=== PATIENT | female | born 1985 | race Caucasian/White ===

== ENCOUNTER 2017-11-20 11:07 | Emergency (ER) | payer MEDICAID, OTHER ==
[~2017-11-20] VITALS: Ht 154.9 cm; Wt 56.0 kg
[~2017-11-20 11:07] MED LIST: FERR325T PO; MAKE250I IM; PRENCAP6 PO
[2017-11-20 11:31] VITALS: BP 139/77; PULSE 99; RESP 22; TEMP 98.8; O2SAT 100
[2017-11-20 13:07] LABS: AUTOMATED NEUTROPHIL # 5.5 TH/MM3 (1.8-7.7); BASOPHIL % 0.3 % (0.0-2.0); EOSINOPHIL # 0.1 TH/MM3 (0-0.4); EOSINOPHIL % 0.5 % (0.0-4.0); HEMATOCRIT 37.5 % (35.0-46.0); HEMOGLOBIN 12.6 GM/DL (11.6-15.3); LYMPH % 29.5 % (9.0-44.0); LYMPHOCYTE # 2.7 TH/MM3 (1.0-4.8); MEAN CELL VOLUME 77.1 FL (80.0-100.0); MEAN CORPUSCULAR HGB CONC 33.7 % (32.0-36.0); MEAN PLATELET VOLUME 8.4 FL (7.0-11.0); MONO % 10.2 % (0.0-8.0); MONOCYTE # 0.9 TH/MM3 (0-0.9); NEUT % 59.5 % (16.0-70.0); PLATELET COUNT 296 TH/MM3 (150-450); RED BLOOD COUNT 4.86 MIL/MM3 (4.00-5.30); RED CELL DISTRIBUTION WIDTH 14.6 % (11.6-17.2); WHITE BLOOD COUNT 9.2 TH/MM3 (4.0-11.0)
--- NOTE | 2017-11-20 13:13 | PD ---
HPI Chief Complaint: Cold / Flu Symptoms Time Seen by Provider: 12:13 Travel History International Travel<30 days: No Contact w/Intl Traveler<30days: Yes Name of Country Traveled to: [place] OCTOBER 2017 Traveled to known affect area: No History of Present Illness HPI 32-year-old presents to the emergency department with multiple complaints. Her first complaint is cough and nasal congestion 2 days. Reports greenish mucus. Reports shortness of breath only with coughing. Denies chest tightness, wheezing. Denies fevers. Denies ear pain, sore throat. Has been taking Robitussin for symptom management. Symptoms are mild in severity. No known aggravating or relieving factors. Her second complaint is abdominal pain and cramping 3 days with abnormal vaginal discharge and odor. Denies vaginal leaking, bleeding, lesions. Does not have concern of STI/STD. Denies dysuria. Last menstrual period was October 04. Symptoms are mild to moderate in severity. Pain is constant. Worse with coughing. No known relieving factors. No primary care provider. No crabber. No known allergies. Takes vitamins. Denies significant past medical history. Has no other medical complaints. No other modifying factors or associated signs and symptoms. PFSH Past Medical History Medical History: Denies Significant Hx Diminished Hearing: No ?: LMP: 10/04/17 : 5 Para: 2 Miscarriage: 2 : 1 Past Surgical History Surgical History: No Previous Surgery Section: Yes Social History Alcohol Use: No Tobacco Use: No Substance Use: No Allergies-Medications (Allergen,Severity, Reaction): Coded Allergies: No Known Allergies (Verified Adverse Reaction, Unknown, 11/20/17) Reported Meds & Prescriptions Reported Meds & Active Scripts Active Spry (Hydroxyprogesterone Caproate) 250 Mg/Ml Inj 250 Mg IM WEEKLY Reported Iron (Ferrous Sulfate) 325 Mg Tab 325 Mg PO DAILY 1 ( Multivitamins) Cap 1 Cap PO DAILY Review of Systems Except as stated in HPI: all other systems reviewed are Neg Physical Exam Narrative GENERAL: Well-nourished, well-developed black female patient, in no acute distress; afebrile, nontoxic-appearing SKIN: Warm and dry. No rash. HEAD: Atraumatic. Normocephalic. EYES: Pupils equal and round. No scleral icterus. No injection or drainage. ENT: Mucosa pink and moist. No erythema or exudates. No uvular edema. No uvular , palatal, or tonsillar deviation. Airway patent. EARS: Bilateral pinnae and external canals appear within normal limits. Bilateral tympanic membranes without erythema, dullness or perforation. NECK: Trachea midline. No lymphadenopathy. CARDIOVASCULAR: Regular rate and rhythm. No murmur appreciated. RESPIRATORY: No accessory muscle use. Clear to auscultation. Breath sounds equal bilaterally. No retractions or tachypnea. GASTROINTESTINAL: Abdomen soft, tenderness to lower abdomen, nondistended. Hepatic and splenic margins not palpable. Bowel sounds are active 4 quadrants. PELVIC: Exam done in the presence of a nurse. Speculum exam reveals nonedematous and nonerythematous cervix with normal amount of creamy white nonodorous discharge. Bimanual exam reveals no palpable masses or adnexa tenderness, no uterine tenderness. No cervical motion tenderness. BACK: No CVA tenderness. MUSCULOSKELETAL: No obvious deformities. No clubbing. No cyanosis. No edema. NEUROLOGICAL: Awake and alert. Oriented 3. No obvious cranial nerve deficits. Motor grossly within normal limits. Normal speech. Moves all extremities. 5/5 strength to all extremities. PSYCHIATRIC: Appropriate mood and affect; insight and judgment normal. Data Data Last Documented VS Vital Signs Date Time Temp Pulse Resp B/P (MAP) Pulse Ox O2 Delivery O2 Flow Rate FiO2 11/20/17 11:31 98.8 99 22 139/77 (97) 100 Orders Orders Beta Hcg (Quant/Titer) (11/20/17 12:35) Complete Blood Count With Diff (11/20/17 12:35) Comprehensive Metabolic Panel (11/20/17 12:35) Gc And Chlamydia Pcr (11/20/17 12:35) Us Pelvis (Ques Preg/Ectopic) (11/20/17 ) Wet Prep Profile (11/20/17 12:35) Urinalysis - C+S If Indicated (11/20/17 12:35) Ed Urine Pregnancytest Poc (11/20/17 12:35) Ed Discharge Order (11/20/17 14:37) Labs Laboratory Tests Test 11/20/17 12:48 11/20/17 12:59 White Blood Count 9.2 TH/MM3 Red Blood Count 4.86 MIL/MM3 Hemoglobin 12.6 GM/DL Hematocrit 37.5 % Mean Corpuscular Volume 77.1 FL Mean Corpuscular Hemoglobin 26.0 PG Mean Corpuscular Hemoglobin Concent 33.7 % Red Cell Distribution Width 14.6 % Platelet Count 296 TH/MM3 Mean Platelet Volume 8.4 FL Neutrophils (%) (Auto) 59.5 % Lymphocytes (%) (Auto) 29.5 % Monocytes (%) (Auto) 10.2 % Eosinophils (%) (Auto) 0.5 % Basophils (%) (Auto) 0.3 % Neutrophils # (Auto) 5.5 TH/MM3 Lymphocytes # (Auto) 2.7 TH/MM3 Monocytes # (Auto) 0.9 TH/MM3 Eosinophils # (Auto) 0.1 TH/MM3 Basophils # (Auto) 0.0 TH/MM3 CBC Comment DIFF FINAL Differential Comment Urine Color YELLOW Urine Turbidity CLEAR Urine pH 6.0 Urine Specific [place] 1.029 Urine Protein TRACE mg/dL Urine Glucose (UA) NEG mg/dL Urine Ketones NEG mg/dL Urine Occult Blood NEG Urine Nitrite NEG Urine Bilirubin NEG Urine Urobilinogen LESS THAN 2.0 MG/DL Urine Leukocyte Esterase NEG Urine RBC 1 /hpf Urine WBC 3 /hpf Urine Squamous Epithelial Cells 2 /hpf Urine Mucus MOD /lpf Microscopic Urinalysis Comment CULT NOT INDICATED Blood Urea Nitrogen 9 MG/DL Creatinine 0.53 MG/DL Random Glucose 84 MG/DL Total Protein 8.1 GM/DL Albumin 3.5 GM/DL Calcium Level 9.1 MG/DL Alkaline Phosphatase 91 U/L Aspartate Amino Transf (AST/SGOT) 21 U/L Alanine Aminotransferase (ALT/SGPT) 24 U/L Total Bilirubin 0.2 MG/DL Sodium Level 135 MEQ/L Potassium Level 3.8 MEQ/L Chloride Level 102 MEQ/L Carbon Dioxide Level 24.1 MEQ/L Anion Gap 9 MEQ/L Estimat Glomerular Filtration Rate 135 ML/MIN Human Chorionic Gonadotropin, Quant 49271 MIU/ML Clue Cells (Wet Prep) NONE SEEN Vaginal Trichomonas (Wet Prep) NONE SEEN Vaginal Yeast (Wet Prep) NONE SEEN MDM Medical Decision Making Medical Screen Exam Complete: Yes Emergency Medical Condition: Yes Medical Record Reviewed: Yes Differential Diagnosis Viral illness, bronchitis, ectopic , urinary tract infection, PID, chlamydia, gonorrhea, BV, trichomonas, IUP Narrative Course 32-year-old female approximately 6 weeks physical exam and HPI consistent with viral illness. Discussed viral illness and symptom management. Patient is also complaining of abnormal vaginal discharge and abdominal pain and cramping to the lower abdomen. Denies vaginal bleeding or leaking. CBC, CMP, beta-hCG, urinalysis, UPT, wet prep, chlamydia, gonorrhea, pelvic ultrasound ordered. 1358: CBC, CMP unremarkable. Urinalysis without signs of infection. Beta hCG 11614. 1437: Pelvic ultrasound concludes: Pelvis Ultrasound 11/20/17 0000 Signed Impressions: Service Date/Time: Monday, November 20, 2017 13:34 - CONCLUSION: 1. Positive viable intrauterine of 6 weeks 6 days by gestational sac measurements. Regis Langley MD Clue cells, vaginal yeast, vaginal trichomonas negative. Chlamydia and gonorrhea pending. I did not suspect cervicitis on exam and patient will not be treated empirically in the ER. Instructed patient to follow-up with [facility]. Instructed patient to follow up with primary care provider. Patient verbalizes understanding and agreement with treatment plan. Patient is medically cleared and stable for discharge. Discussed reasons to return to the emergency department. Patient agrees with treatment plan. The patients vital signs are stable and the patient is stable for outpatient follow-up and treatment. Patient discharged home, stable and in no acute distress. Diagnosis Primary Impression: Viral illness Additional Impression: Intrauterine Referrals: Disc Recordist Primary Care Physician Patient Instructions: Cold Symptoms (ED), First Trimester (ED), General Instructions Departure Forms: Tests/Procedures, Work Release Enter return to work date: Nov 22, 2017 Additional Instructions: Tylenol as directed and as needed for pain/fever Onoz-tiv-nacicmm cold/flu medications as directed and as needed for symptom management; check with the pharmacist to verify that they are safe for Get plenty of sleep/rest Drink plenty of fluids to prevent dehydration; such as Gatorade, Powerade, Pedialyte [place] diet to encourage nutrition such as crackers, fruit, applesauce, toast, soup etc. Use an air humidifier/turn off ceiling fans Follow-up with your primary care provider Follow-up with crabber Return immediately to the emergency department with worsening of symptoms Med/Other Pt SpecificInfo: No Change to Meds, No Meds Exist/No RX given Disposition: DISCHARGE HOME Condition: Stable Chela Schofield Nov 20, 2017 13:13
[2017-11-20 13:20] LABS: BILIRUBIN, URINE NEG (NEG); BLOOD, URINE NEG (NEG); GLUCOSE,URINE NEG (NEG); KETONE, URINE NEG (NEG); MUCUS URINE MOD /lpf (OCC); NITRITE,URINE NEG (NEG); SQUAMOUS EPITHELIAL CELL URINE 2 /hpf (0-5); URINE COLOR YELLOW (YELLW/STRAW); URINE LEUKOCYTE ESTERASE NEG (NEG)
[2017-11-20 13:31] LABS: ALBUMIN 3.5 GM/DL (3.4-5.0); AST (GOT) 21 U/L (15-37); BICARBONATE 24.1 MEQ/L (21.0-32.0); BLOOD UREA NITROGEN 9 MG/DL (7-18); CALCIUM 9.1 MG/DL (8.5-10.1); CHLORIDE 102 MEQ/L (98-107); CREATININE 0.53 MG/DL (0.50-1.00); GLOMERULAR FILTRATION RATE 135 ML/MIN (>89); GLUCOSE,RANDOM 84 MG/DL (74-106); SODIUM (NA) 135 MEQ/L (136-145)
[2017-11-20 13:32] LABS: ALT (GPT) 24 U/L (10-53)
[2017-11-20 13:49] LABS: ALKALINE PHOSPHATASE 91 U/L (45-117); TOTAL BILIRUBIN ADULT 0.2 MG/DL (0.2-1.0); TOTAL PROTEIN 8.1 GM/DL (6.4-8.2)
--- NOTE | 2017-11-20 14:08 | RADRPT ---
EXAM DATE/TIME: 11/20/2017 13:34 [facility] COMPARISON: No previous studies available for comparison. INDICATIONS : Pelvic pain. LAB(S): Beta-hC MEDICAL HISTORY : . Miscarriage x 3. x 1. SURGICAL HISTORY : section. ENCOUNTER: Initial ACUITY: 1 day PAIN SCORE: 4/10 LOCATION: Bilateral pelvis MEASUREMENTS: UTERUS: 9.4 x 7.1 x 5.3 cm ENDOMETRIAL STRIPE: >20 mm RIGHT OVARY: 4.2 x 3.1 x 3.2 cm LEFT OVARY: 1.7 x 1.3 x 0.8 cm FREE FLUID: No CROWN RUMP LENGTH: 0.8 = 6 WKS 5 DAYS FHR: 106 BPM FINDINGS: The uterus is retroflexed. Gestational sac measurements are characteristic of a 6 week 6 day gestatio nal age. Positive yolk sac. heart rate is 106 beats per minute. No free fluid. Left ovary unremarkable. Probable corpus luteum cyst right ovary measuring up to 3.1 cm in diameter. CONCLUSION: 1. Positive viable intrauterine of 6 weeks 6 days by gestational sac measurements. Regis Langley MD on November 20, 2017 at 14:03 Board Certified Radiologist. This report was verified electronically.
--- NOTE | 2017-11-20 14:57 | PD ---
Data Data Last Documented VS Vital Signs Date Time Temp Pulse Resp B/P (MAP) Pulse Ox O2 Delivery O2 Flow Rate FiO2 11/20/17 11:31 98.8 99 22 139/77 (97) 100 Orders Orders Beta Hcg (Quant/Titer) (11/20/17 12:35) Complete Blood Count With Diff (11/20/17 12:35) Comprehensive Metabolic Panel (11/20/17 12:35) Gc And Chlamydia Pcr (11/20/17 12:35) Us Pelvis (Ques Preg/Ectopic) (11/20/17 ) Wet Prep Profile (11/20/17 12:35) Urinalysis - C+S If Indicated (11/20/17 12:35) Ed Urine Pregnancytest Poc (11/20/17 12:35) Ed Discharge Order (11/20/17 14:37) Labs Laboratory Tests Test 11/20/17 12:48 11/20/17 12:59 White Blood Count 9.2 TH/MM3 Red Blood Count 4.86 MIL/MM3 Hemoglobin 12.6 GM/DL Hematocrit 37.5 % Mean Corpuscular Volume 77.1 FL Mean Corpuscular Hemoglobin 26.0 PG Mean Corpuscular Hemoglobin Concent 33.7 % Red Cell Distribution Width 14.6 % Platelet Count 296 TH/MM3 Mean Platelet Volume 8.4 FL Neutrophils (%) (Auto) 59.5 % Lymphocytes (%) (Auto) 29.5 % Monocytes (%) (Auto) 10.2 % Eosinophils (%) (Auto) 0.5 % Basophils (%) (Auto) 0.3 % Neutrophils # (Auto) 5.5 TH/MM3 Lymphocytes # (Auto) 2.7 TH/MM3 Monocytes # (Auto) 0.9 TH/MM3 Eosinophils # (Auto) 0.1 TH/MM3 Basophils # (Auto) 0.0 TH/MM3 CBC Comment DIFF FINAL Differential Comment Urine Color YELLOW Urine Turbidity CLEAR Urine pH 6.0 Urine Specific [place] 1.029 Urine Protein TRACE mg/dL Urine Glucose (UA) NEG mg/dL Urine Ketones NEG mg/dL Urine Occult Blood NEG Urine Nitrite NEG Urine Bilirubin NEG Urine Urobilinogen LESS THAN 2.0 MG/DL Urine Leukocyte Esterase NEG Urine RBC 1 /hpf Urine WBC 3 /hpf Urine Squamous Epithelial Cells 2 /hpf Urine Mucus MOD /lpf Microscopic Urinalysis Comment CULT NOT INDICATED Blood Urea Nitrogen 9 MG/DL Creatinine 0.53 MG/DL Random Glucose 84 MG/DL Total Protein 8.1 GM/DL Albumin 3.5 GM/DL Calcium Level 9.1 MG/DL Alkaline Phosphatase 91 U/L Aspartate Amino Transf (AST/SGOT) 21 U/L Alanine Aminotransferase (ALT/SGPT) 24 U/L Total Bilirubin 0.2 MG/DL Sodium Level 135 MEQ/L Potassium Level 3.8 MEQ/L Chloride Level 102 MEQ/L Carbon Dioxide Level 24.1 MEQ/L Anion Gap 9 MEQ/L Estimat Glomerular Filtration Rate 135 ML/MIN Human Chorionic Gonadotropin, Quant 24739 MIU/ML Clue Cells (Wet Prep) NONE SEEN Vaginal Trichomonas (Wet Prep) NONE SEEN Vaginal Yeast (Wet Prep) NONE SEEN MDM Supervised Visit with ALBERTO: Yes Narrative Course I, Dr. Byrnes, have reviewed the advance practice practitioner's documentation and am in agreement, met with the patient face to face, made the diagnosis, and the medical decision making was done by me. *My assessment and Findings: Patient has an IUP and ectopic is ruled out. Labs are normal. She also has acute viral respiratory infection requiring no antibiotic treatment. Stable for outpatient follow-up Diagnosis Primary Impression: Viral illness Additional Impression: Intrauterine Referrals: Crystal Evaluator Primary Care Physician Patient Instructions: General Instructions, Cold Symptoms (ED) Departure Forms: Work Release, Enter return to work date: Tests/Procedures Additional Instruction: Tylenol as directed and as needed for pain/fever [id number] cold/flu medications as directed and as needed for symptom management; check with the pharmacist to verify that they are safe for Get plenty of sleep/rest Drink plenty of fluids to prevent dehydration; such as Gatorade, Powerade, Pedialyte [place] diet to encourage nutrition such as crackers, fruit, applesauce, toast, soup etc. Use an air humidifier/turn off ceiling fans Follow-up with your primary care provider Follow-up with record label internship Return immediately to the emergency department with worsening of symptoms Disposition: 01 DISCHARGE HOME Condition: Stable Otto Byrnes MD Nov 20, 2017 14:57
== END 2017-11-20 15:00 | disposition home or self-care (01) ==
LOC: NEPD 11:07
DX: O98.511 Other viral diseases complicating pregnancy, first trimester (principal); B34.9 Viral infection, unspecified; R10.2 Pelvic and perineal pain; Z3A.01 Less than 8 weeks gestation of pregnancy
CPT/HCPCS: 76700; 80053; 81001; 84702; 84703; 85025; 87210; 87491; 87591; 99284

== ENCOUNTER 2018-01-10 16:01 | Emergency (ER) | payer OTHER ==
[~2018-01-10] VITALS: Ht 154.9 cm; Wt 60.0 kg
[2018-01-10 16:14] VITALS: BP 129/80; PULSE 136; RESP 15; TEMP 98.1; O2SAT 99
--- NOTE | 2018-01-10 16:34 | PD ---
HPI Chief Complaint: Abdominal Pain Time Seen by Provider: 16:33 Travel History International Travel<30 days: No Contact w/Intl Traveler<30days: No Traveled to known affect area: No History of Present Illness HPI 32-year-old female came to the emergency room with history of nausea, vomiting and diarrhea for past 2 days. She says she has been having some fever and chills as well. Her daughter is being seen in the pediatric pod for diarrhea symptoms. Patient says she feels very weak and dehydrated. She is 14 weeks . No history of vaginal bleeding or pelvic cramps. She is otherwise a healthy person. Patient says she last night she had some fever and chills and took Tylenol. There was last time she took Tylenol. Patient was afebrile in triage but quite tachycardic. She says she she has not been able to keep anything down. PFSH Past Medical History Narrative Medical List of her past medical, surgical, social and family history is reviewed from the nursing note Diminished Hearing: No ?: LMP: 09/2017 : 5 Para: 2 Miscarriage: 2 : 1 Past Surgical History Section: Yes Social History Alcohol Use: No Tobacco Use: No Substance Use: No Allergies-Medications (Allergen,Severity, Reaction): Coded Allergies: No Known Allergies (Verified Adverse Reaction, Unknown, 01/10/18) Comments No known drug allergies. Reported Meds & Prescriptions Reported Meds & Active Scripts Active Tylenol (Acetaminophen) 325 Mg Tab 650 Mg PO Q6H PRN Zofran Odt (Ondansetron Odt) 4 Mg Tab 4 Mg SL Q12HR PRN Macrobid (Nitrofurantoin Monoh/Nitrofur Macro) 100 Mg Cap 100 Mg PO BID 5 Days Reported Plus Iron 29-1 mg ( Vit-Iron Carbonyl) 29 Mg Iron-1 Mg Tab 1 Tab PO DAILY Narrative Medication List of her home medications reviewed from the nursing note. Review of Systems Except as stated in HPI: all other systems reviewed are Neg Gastrointestinal: Positive: Nausea, Vomiting, Diarrhea Physical Exam Narrative GENERAL: Awake, alert, moderate distress SKIN: Focused skin assessment warm/dry. HEAD: Atraumatic. Normocephalic. EYES: Pupils equal and round. No scleral icterus. No injection or drainage. ENT: No nasal bleeding or discharge. Dry mucous membrane. NECK: Trachea midline. No JVD. CARDIOVASCULAR: Regular rate and rhythm. Tachycardia. No murmur appreciated. RESPIRATORY: No accessory muscle use. Clear to auscultation. Breath sounds equal bilaterally. GASTROINTESTINAL: Abdomen soft, non-tender, nondistended. Hepatic and splenic margins not palpable. MUSCULOSKELETAL: No obvious deformities. No clubbing. No cyanosis. No edema. NEUROLOGICAL: Awake and alert. No obvious cranial nerve deficits. Motor grossly within normal limits. Normal speech. PSYCHIATRIC: Appropriate mood and affect; insight and judgment normal. Data Data Last Documented VS Vital Signs Date Time Temp Pulse Resp B/P (MAP) Pulse Ox O2 Delivery O2 Flow Rate FiO2 01/10/18 21:05 01/10/18 19:08 114 15 100 Room Air 01/10/18 18:04 97.8 Orders Orders Complete Blood Count With Diff (01/10/18 16:40) Comprehensive Metabolic Panel (01/10/18 16:40) Urinalysis - C+S If Indicated (01/10/18 16:40) Iv Access Insert/Monitor (01/10/18 16:40) Ecg Monitoring (01/10/18 16:40) Oximetry (01/10/18 16:40) Ondansetron Inj (Zofran Inj) (01/10/18 16:45) Sodium Chlor 0.9% 1000 Ml Inj (Ns 1000 M (01/10/18 16:40) Sodium Chloride 0.9% Flush (Ns Flush) (01/10/18 16:45) Sodium Chlor 0.9% 1000 Ml Inj (Ns 1000 M (01/10/18 16:45) Lactic Acid (01/10/18 16:40) Blood Culture (01/10/18 16:40) Influenzae A/B Antigen (01/10/18 16:40) Ondansetron Odt (Zofran Odt) (01/10/18 16:56) Ondansetron Odt (Zofran Odt) (01/10/18 17:15) Sodium Chlor 0.9% 1000 Ml Inj (Ns 1000 M (01/10/18 18:30) Acetaminophen (Tylenol) (01/10/18 18:30) Nitrofurantoin Monohyd Macrocr (Macrobid (01/10/18 18:30) Ed Poc Ultrasound (01/10/18 ) Metoclopramide Inj (Reglan Inj) (01/10/18 20:00) Ed Discharge Order (01/10/18 20:43) Labs Laboratory Tests Test 01/10/18 17:20 01/10/18 18:00 Urine Color DARK-YELLOW Urine Turbidity HAZY Urine pH 6.0 Urine Specific [place] 1.035 Urine Protein 30 mg/dL Urine Glucose (UA) NEG mg/dL Urine Ketones 40 mg/dL Urine Occult Blood NEG Urine Nitrite NEG Urine Bilirubin NEG Urine Urobilinogen 4.0 MG/DL Urine Leukocyte Esterase TRACE Urine RBC 2 /hpf Urine WBC 3 /hpf Urine Squamous Epithelial Cells 2 /hpf Urine Calcium Oxalate Crystals FEW /hpf Urine Bacteria RARE /hpf Urine Mucus MANY /lpf Microscopic Urinalysis Comment CULT NOT INDICATED Blood Urea Nitrogen 12 MG/DL Creatinine 0.40 MG/DL Random Glucose 77 MG/DL Total Protein 7.8 GM/DL Albumin 3.3 GM/DL Calcium Level 9.3 MG/DL Alkaline Phosphatase 64 U/L Aspartate Amino Transf (AST/SGOT) 23 U/L Alanine Aminotransferase (ALT/SGPT) 23 U/L Total Bilirubin 0.3 MG/DL Sodium Level 138 MEQ/L Potassium Level 3.7 MEQ/L Chloride Level 101 MEQ/L Carbon Dioxide Level 25.3 MEQ/L Anion Gap 12 MEQ/L Estimat Glomerular Filtration Rate 187 ML/MIN Lactic Acid Level 1.1 mmol/L White Blood Count 4.0 TH/MM3 Red Blood Count 3.95 MIL/MM3 Hemoglobin 10.2 GM/DL Hematocrit 30.1 % Mean Corpuscular Volume 76.2 FL Mean Corpuscular Hemoglobin 25.8 PG Mean Corpuscular Hemoglobin Concent 33.8 % Red Cell Distribution Width 12.6 % Platelet Count 161 TH/MM3 Mean Platelet Volume 8.5 FL Neutrophils (%) (Auto) 44.5 % Lymphocytes (%) (Auto) 34.2 % Monocytes (%) (Auto) 20.9 % Eosinophils (%) (Auto) 0.2 % Basophils (%) (Auto) 0.2 % Neutrophils # (Auto) 1.8 TH/MM3 Lymphocytes # (Auto) 1.4 TH/MM3 Monocytes # (Auto) 0.8 TH/MM3 Eosinophils # (Auto) 0.0 TH/MM3 Basophils # (Auto) 0.0 TH/MM3 CBC Comment DIFF FINAL Differential Comment [facility] Medical Decision Making Medical Screen Exam Complete: Yes Emergency Medical Condition: Yes Medical Record Reviewed: Yes Differential Diagnosis Acute gastroenteritis, dehydration, electrolyte abnormality, sepsis Narrative Course 5:10 PM awaiting for blood test result. Patient is getting 2 L of IV fluid bolus and Zofran sublingual. Case has been signed over to the oncoming ER physician. Procedures EKG Prior to Arrival: No Scripts Acetaminophen (Tylenol) 325 Mg Tab 650 MG PO Q6H Y for PAIN SCALE 1 TO 4, #20 TAB 0 Refills Prov: Dariana Zepeda DO 01/10/18 Ondansetron Odt (Zofran Odt) 4 Mg Tab 4 MG SL Q12HR Y for Nausea/Vomiting, #10 TAB 0 Refills Prov: Dariana Zepeda DO 01/10/18 Nitrofurantoin Monohydrate Macrocrystals (Macrobid) 100 Mg Cap 100 MG PO BID for Infection for 5 Days, #10 CAP 0 Refills Prov: Dariana Zepeda DO 01/10/18 Pastor See MD January 10, 2018 16:34
[2018-01-10] MEDS ORDERED: SODIUM CHLOR 0.9% 1000 ML INJ 1,000 ML IV SCH (16:40)
[2018-01-10 16:41] VITALS: PULSE 106; RESP 17; O2SAT 99
[2018-01-10] MEDS ORDERED: ONDANSETRON HCL 4 MG/2 ML VIAL IVP ONE (16:45)
[2018-01-10] MEDS ORDERED: SODIUM CHLOR 0.9% 1000 ML INJ 1,000 ML IV ONE ×2 (16:45→18:30)
[2018-01-10] MEDS ORDERED: SODIUM CHLORIDE 0.9% FLUSH 10 ML FLUSH IV FLUSH PRN (16:45)
[2018-01-10] MEDS ORDERED: PREN29TA PO (16:51)
[2018-01-10] MEDS ORDERED: ONDANSETRON ODT 4 MG TAB ONE (16:56)
[2018-01-10] MEDS ORDERED: ONDANSETRON ODT 4 MG TAB PO ONE (17:15)
[2018-01-10 17:31] LABS: BACTERIA, URINE RARE /hpf; BILIRUBIN, URINE NEG (NEG); BLOOD, URINE NEG (NEG); CALCIUM OXALATE CRYSTALS,URINE FEW /hpf; GLUCOSE,URINE NEG (NEG); KETONE, URINE 40 mg/dL (NEG); MUCUS URINE MANY /lpf (OCC); NITRITE,URINE NEG (NEG); SQUAMOUS EPITHELIAL CELL URINE 2 /hpf (0-5); URINE COLOR DARK-YELLOW (YELLW/STRAW); URINE LEUKOCYTE ESTERASE TRACE (NEG)
[2018-01-10 17:52] LABS: ALBUMIN 3.3 GM/DL (3.4-5.0); AST (GOT) 23 U/L (15-37); BICARBONATE 25.3 MEQ/L (21.0-32.0); BLOOD UREA NITROGEN 12 MG/DL (7-18); CALCIUM 9.3 MG/DL (8.5-10.1); CHLORIDE 101 MEQ/L (98-107); GLOMERULAR FILTRATION RATE 187 ML/MIN (>89); GLUCOSE,RANDOM 77 MG/DL (74-106); SODIUM (NA) 138 MEQ/L (136-145)
[2018-01-10 17:53] LABS: ALT (GPT) 23 U/L (10-53)
[2018-01-10 17:56] LABS: ALKALINE PHOSPHATASE 64 U/L (45-117); TOTAL BILIRUBIN ADULT 0.3 MG/DL (0.2-1.0); TOTAL PROTEIN 7.8 GM/DL (6.4-8.2)
[2018-01-10 18:04] VITALS: BP 108/63; PULSE 99; RESP 15; TEMP 97.8; O2SAT 100
--- NOTE | 2018-01-10 18:16 | PD ---
Physical Exam Narrative Received sign out from previous team to follow up labs and reevaluate. 32yo F who is 14 weeks here with vomiting and diarrhea for 2 days. Pt is tachycardic and sepsis work up was initiated by previous provider. Labs reviewed, no leukocytosis. H/H low at 10.2/30.1. Denies any vaginal bleeding or discharge. Lactic acid normal. CMP unremarkable. UA showed rare bacteria. WBC only 3. But since she is , will cover with antibiotics. Pt had no abdominal pain before but on my exam, has mild suprapubic tenderness. Pt given acetaminophen. Pt has not had an ultrasound this . Bedside US showed intrauterine and positive heart rate and movement. Pt given NS IVF x3 and HR has improved. Pt is feeling better and wants to go home. Said she is no longer nauseous after zofran and reglan. Pt tolerating PO. Return precautions given. Data Data Last Documented VS Vital Signs Date Time Temp Pulse Resp B/P (MAP) Pulse Ox O2 Delivery O2 Flow Rate FiO2 01/10/18 19:08 114 15 111/64 (80) 100 Room Air 01/10/18 18:04 97.8 Orders Orders Complete Blood Count With Diff (01/10/18 16:40) Comprehensive Metabolic Panel (01/10/18 16:40) Urinalysis - C+S If Indicated (01/10/18 16:40) Iv Access Insert/Monitor (01/10/18 16:40) Ecg Monitoring (01/10/18 16:40) Oximetry (01/10/18 16:40) Ondansetron Inj (Zofran Inj) (01/10/18 16:45) Sodium Chlor 0.9% 1000 Ml Inj (Ns 1000 M (01/10/18 16:40) Sodium Chloride 0.9% Flush (Ns Flush) (01/10/18 16:45) Sodium Chlor 0.9% 1000 Ml Inj (Ns 1000 M (01/10/18 16:45) Lactic Acid (01/10/18 16:40) Blood Culture (01/10/18 16:40) Influenzae A/B Antigen (01/10/18 16:40) Ondansetron Odt (Zofran Odt) (01/10/18 16:56) Ondansetron Odt (Zofran Odt) (01/10/18 17:15) Sodium Chlor 0.9% 1000 Ml Inj (Ns 1000 M (01/10/18 18:30) Acetaminophen (Tylenol) (01/10/18 18:30) Nitrofurantoin Monohyd Macrocr (Macrobid (01/10/18 18:30) Ed Poc Ultrasound (01/10/18 ) Metoclopramide Inj (Reglan Inj) (01/10/18 20:00) Labs Laboratory Tests Test 01/10/18 17:20 01/10/18 18:00 Urine Color DARK-YELLOW Urine Turbidity HAZY Urine pH 6.0 Urine Specific Pepin 1.035 Urine Protein 30 mg/dL Urine Glucose (UA) NEG mg/dL Urine Ketones 40 mg/dL Urine Occult Blood NEG Urine Nitrite NEG Urine Bilirubin NEG Urine Urobilinogen 4.0 MG/DL Urine Leukocyte Esterase TRACE Urine RBC 2 /hpf Urine WBC 3 /hpf Urine Squamous Epithelial Cells 2 /hpf Urine Calcium Oxalate Crystals FEW /hpf Urine Bacteria RARE /hpf Urine Mucus MANY /lpf Microscopic Urinalysis Comment CULT NOT INDICATED Blood Urea Nitrogen 12 MG/DL Creatinine 0.40 MG/DL Random Glucose 77 MG/DL Total Protein 7.8 GM/DL Albumin 3.3 GM/DL Calcium Level 9.3 MG/DL Alkaline Phosphatase 64 U/L Aspartate Amino Transf (AST/SGOT) 23 U/L Alanine Aminotransferase (ALT/SGPT) 23 U/L Total Bilirubin 0.3 MG/DL Sodium Level 138 MEQ/L Potassium Level 3.7 MEQ/L Chloride Level 101 MEQ/L Carbon Dioxide Level 25.3 MEQ/L Anion Gap 12 MEQ/L Estimat Glomerular Filtration Rate 187 ML/MIN Lactic Acid Level 1.1 mmol/L White Blood Count 4.0 TH/MM3 Red Blood Count 3.95 MIL/MM3 Hemoglobin 10.2 GM/DL Hematocrit 30.1 % Mean Corpuscular Volume 76.2 FL Mean Corpuscular Hemoglobin 25.8 PG Mean Corpuscular Hemoglobin Concent 33.8 % Red Cell Distribution Width 12.6 % Platelet Count 161 TH/MM3 Mean Platelet Volume 8.5 FL Neutrophils (%) (Auto) 44.5 % Lymphocytes (%) (Auto) 34.2 % Monocytes (%) (Auto) 20.9 % Eosinophils (%) (Auto) 0.2 % Basophils (%) (Auto) 0.2 % Neutrophils # (Auto) 1.8 TH/MM3 Lymphocytes # (Auto) 1.4 TH/MM3 Monocytes # (Auto) 0.8 TH/MM3 Eosinophils # (Auto) 0.0 TH/MM3 Basophils # (Auto) 0.0 TH/MM3 CBC Comment DIFF FINAL Differential Comment MDM Supervised Visit with ALBERTO: No Procedures Procedure Narrative Emergency Department Pelvic ultrasound was performed with patient consent. The curvilinear probe was used in the transverse and sagittal views within the suprapubic region revealing single intrauterine . heart rate was 136bpm. + movement. Diagnosis Primary Impression: Vomiting Qualified Codes: R11.2 - Nausea with vomiting, unspecified Patient Instructions: General Instructions Departure Forms: Tests/Procedures Additional Instruction: Please follow up with OBGYN in 2-3 days. Return to the ED if symptoms worsen. Med/Other Pt SpecificInfo: Prescription(s) given Scripts Acetaminophen (Tylenol) 325 Mg Tab 650 MG PO Q6H Y for PAIN SCALE 1 TO 4, #20 TAB 0 Refills Prov: Dariana Zepeda DO 01/10/18 Ondansetron Odt (Zofran Odt) 4 Mg Tab 4 MG SL Q12HR Y for Nausea/Vomiting, #10 TAB 0 Refills Prov: Dariana Zepeda DO 01/10/18 Nitrofurantoin Monohydrate Macrocrystals (Macrobid) 100 Mg Cap 100 MG PO BID for Infection for 5 Days, #10 CAP 0 Refills Prov: Dariana Zepeda DO 01/10/18 Disposition: 01 DISCHARGE HOME Condition: Stable Dariana Zepeda DO January 10, 2018 18:16
[2018-01-10] MEDS ORDERED: NITROFURANTOIN MONOHYD MACROCR 100 MG CAP PO ONE (18:30)
[2018-01-10] MEDS ORDERED: ACETAMINOPHEN 325 MG TAB PO ONE (18:30)
[2018-01-10 18:41] LABS: AUTOMATED NEUTROPHIL # 1.8 TH/MM3 (1.8-7.7); BASOPHIL % 0.2 % (0.0-2.0); EOSINOPHIL % 0.2 % (0.0-4.0); HEMATOCRIT 30.1 % (35.0-46.0); HEMOGLOBIN 10.2 GM/DL (11.6-15.3); LYMPH % 34.2 % (9.0-44.0); LYMPHOCYTE # 1.4 TH/MM3 (1.0-4.8); MEAN CELL VOLUME 76.2 FL (80.0-100.0); MEAN CORPUSCULAR HEMOGLOBIN 25.8 PG (27.0-34.0); MEAN CORPUSCULAR HGB CONC 33.8 % (32.0-36.0); MEAN PLATELET VOLUME 8.5 FL (7.0-11.0); MONO % 20.9 % (0.0-8.0); MONOCYTE # 0.8 TH/MM3 (0-0.9); NEUT % 44.5 % (16.0-70.0); PLATELET COUNT 161 TH/MM3 (150-450); RED BLOOD COUNT 3.95 MIL/MM3 (4.00-5.30); RED CELL DISTRIBUTION WIDTH 12.6 % (11.6-17.2)
[2018-01-10 19:08] VITALS: BP 111/64; PULSE 114; RESP 15; O2SAT 100
[2018-01-10] MEDS ORDERED: METOCLOPRAMIDE INJ 10 MG in SODIUM CHLORIDE 0.9% INJ 50 ML IV ONE (20:00)
[2018-01-10] MEDS ORDERED: ZOFR4TAB3 SL (20:43)
[2018-01-10] MEDS ORDERED: MACR100C2 PO (20:43)
[2018-01-10] MEDS ORDERED: TYLE325T PO (20:43)
== END 2018-01-10 21:09 | disposition home or self-care (01) ==
LOC: NEPD 16:01
DX: O21.9 Vomiting of pregnancy, unspecified (principal); Z3A.14 14 weeks gestation of pregnancy
CPT/HCPCS: 80053; 81001; 83605; 85025; 87040; 87804; 96361; 96374; 99284; J2765; J7030

== ENCOUNTER 2018-07-09 02:00 | Inpatient (IN) ==
[2018-07-09] MEDS ORDERED: Oxytocin 30 Units/500ml Premix 30 UNITS/500 ML BAG IV.SIG ONE (02:46)
[2018-07-09] MEDS ORDERED: Sod Chloride 0.9% Inj 1,000 ML IV.CONT PRN (02:46)
[2018-07-09] MEDS ORDERED: Naloxone Inj 0.4 MG/ML Vial IV.PUSH PRN ×2 (02:46→04:34)
[2018-07-09] MEDS ORDERED: fentaNYL Citrate Inj 100 MCG/2 ML Ampul IV.PUSH PRN ×2 (02:46)
[2018-07-09] MEDS ORDERED: Sodium Chlor 0.9% Inj 500 ML IV.SIG PRN (02:46)
[2018-07-09] MEDS ORDERED: Citric Acid/Sodium Citrate Liq 30 ML UDC PO SCH (03:00)
--- NOTE | 2018-07-09 03:01 | P.HPOB ---
History of Present Illness Primary Care Physician: UNKNOWN History of Present Illness: 32 yr old F at 39/4 presents to the OB ED for contractions. Patient states that she woke up with contractions around 11:30pm. Contractions have been less than 5 min apart for 1 hour. Endorses spotting. Endorses good movement. Denies LOF. GBS unknown. Hx of with her second child due to decreased heart tones. Patient's last delivery was vaginal, no complications. - Inpatient Certification I certify that the inpatient services were ordered in accordance with Medicare regulations governing the order. This includes certification that hospital inpatient services are reasonable and necessary and in the case of services not specified as inpatient-only under 42 CFR 419.22(n), that they are appropriately provided as inpatient services in accordance to with the 2-midnight benchmark under 43 CFR 412.3(e) Estimated Total Length of Stay (Days): 3 Plans for Post Hospital Care: Home Review of Systems All other systems reviewed negative except as stated [facility] - Surgical History Surgical History: Surgical History (Last Updated 07/09/18 @ 02:55 by Xochitl Ramirez MD, R2) Previous section - Family History Family History: Family History (Last Updated 07/09/18 @ 02:56 by Xochitl Ramirez MD, R2) Other No significant family history - Social History I have reviewed the patient's Social History: Yes - Tobacco History Second Hand Smoke Exposure: No Medications and Allergies Active Medications: Active Medications Citric Acid/Sodium Citrate (Sodium Citrate/Citric Acid Liq) 30 ml PO [employer] [facility] Stop: 07/13/18 02:59 Fentanyl Citrate (Fentanyl Inj) 100 mcg IV.PUSH Q1H PRN PRN Reason: PAIN SCALE 6 TO 10 Fentanyl Citrate (Fentanyl Inj) 50 mcg IV.PUSH Q1H PRN PRN Reason: Pain Scale 3 - 5 Lactated Ringer's (Lr 1000 Ml Inj) 1,000 mls @ 3,000 mls/hr IV.SIG UNSCH PRN PRN Reason: compromise or epidural Sodium Chloride (Ns Inj) 500 mls @ 1,000 mls/hr IV.SIG UNSCH PRN PRN Reason: SEE LABEL COMMENTS Sodium Chloride (Ns Inj) 1,000 mls @ 100 mls/hr IV.CONT .Q10H PRN PRN Reason: SEE LABEL COMMENTS Oxytocin (Pitocin 30 Units/Ns 500 Ml Premix) 30 units in 500 mls @ 999 mls/hr IV.SIG BOLUS ONE Stop: 07/09/18 03:16 Lactated Ringer's (Lr 1000 Ml Inj) 1,000 mls @ 125 mls/hr IV.CONT .Q8H SELAM Lidocaine HCl (Xylocaine 1% Inj) 0.1 ml I-DERMAL PRN PRN PRN Reason: For IV start Stop: 07/12/18 02:45 Lidocaine HCl (Xylocaine 1% Inj) 10 ml INFILTRATN PRN PRN PRN Reason: For episiotomy repair Stop: 07/11/18 02:45 Mineral Oil (Muri-Lube Oil) 10 ml TOPICAL PRN PRN PRN Reason: PRN perineal massage Naloxone HCl (Narcan Inj) 0.1 mg IV.PUSH Q2M PRN PRN Reason: for opiate reversal Ondansetron HCl (Zofran Inj) 4 mg IV.PUSH Q6H PRN PRN Reason: NAUSEA OR VOMITING Sodium Chloride (Ns Flush) 2 ml IV.FLUSH BID SELAM Sodium Chloride (Ns Flush) 2 ml IV.FLUSH PRN PRN PRN Reason: FLUSH AFTER USING IV ACCESS Allergies Allergy/AdvReac Type Severity Reaction Status Date / Time No Known Allergies AdvReac Unknown Uncoded 01/10/18 16:14 Exam Vital signs: Vital Signs 07/09/18 02:16 Temperature 98.1 F Pulse Rate 74 Respiratory Rate 20 Blood Pressure 156/94 H Narrative: Cervical exam performed by nurse: Bulging/5/80/-2 FHTs: 140s, nonreactive Contractions: every 2-3minutes Caprini VTE Risk Assessment Caprini VTE Risk Assessment: No/Low Risk (score <= 1) Caprini Risk Assessment Model: Point Value = 1 Point Value = 2 Point Value = 3 Point Value = 5 Age 41-60 Minor surgery BMI > 25 kg/m2 Swollen legs Varicose veins or History of unexplained or recurrent spontaneous Oral contraceptives or hormone replacement Sepsis (< 1 month) Serious lung disease, including pneumonia (< 1 month) Abnormal pulmonary function Acute myocardial infarction Congestive heart failure (< 1 month) History of inflammatory bowel disease Medical patient at bed rest Age 61-74 Arthroscopic surgery Major open surgery (> 45 min) Laparoscopic surgery (> 45 min) Malignancy Confined to bed (> 72 hours) Immobilizing plaster cast Central venous access Age >= 75 History of VTE Family history of VTE Factor V Leiden Prothrombin [id number] Lupus anticoagulant Anticardiolipin antibodies Elevated serum homocysteine Heparin-induced thrombocytopenia Other congenital or acquired thrombophilia Stroke (< 1 month) Elective arthroplasty Hip, pelvis, or leg fracture Acute spinal cord injury (< 1 month) Prophylaxis Regimen: Total Risk Factor Score Risk Level Prophylaxis Regimen 0-1 Low Early ambulation 2 Moderate Order ONE of the following: *Sequential Compression Device (SCD) *Heparin 5000 units SQ BID 3-4 Higher Order ONE of the following medications: *Heparin 5000 units SQ TID *Enoxaparin/Lovenox 40 mg SQ daily (WT < 150 kg, CrCl > 30 mL/min) *Enoxaparin/Lovenox 30 mg SQ daily (WT < 150 kg, CrCl > 10-29 mL/min) *Enoxaparin/Lovenox 30 mg SQ BID (WT < 150 kg, CrCl > 30 mL/min) AND/OR *Sequential Compression Device (SCD) 5 or more Highest Order ONE of the following medications: *Heparin 5000 units SQ TID (Preferred with Epidurals) *Enoxaparin/Lovenox 40 mg SQ daily (WT < 150 kg, CrCl > 30 mL/min) *Enoxaparin/Lovenox 30 mg SQ daily (WT < 150 kg, CrCl > 10-29 mL/min) *Enoxaparin/Lovenox 30 mg SQ BID (WT < 150 kg, CrCl > 30 mL/min) AND *Sequential Compression Device (SCD) Assessment and Plan - Diagnosis (1) Code(s): Z34.90 - Encounter for supervision of normal , unspecified, unspecified trimester Status: Acute - Plan 32 yr old F at 39/4 presents to the OB ED for contractions. Admit to L & D. Cervical exam performed by nurse: Bulging/5/80/-2 FHTs: 140s, nonreactive Contractions every 2-3min GBS unknown Continue routine OB care Anticipate vaginal delivery dw Dr. Alegria
[2018-07-09 03:16] LABS: Bilirubin,Urine Negative (Negative); Clarity,Urine Clear (Clear); Color,Urine Yellow (Yellw/Straw); Glucose,Urine (UA) Negative (Negative); Leukocyte Esterase,Urine Negative (Negative); Mucus,Urine Few /lpf (Occasional); Nitrite,Urine Negative (Negative); Specific Gravity,Urine 1.016 (1.002-1.035); Squamous Epithelial Cell,Urine 1 /hpf (0-5)
[2018-07-09 03:19] LABS: Amphetamine Urine With Conf Neg (Neg); Benzodiazepine Urine With Conf Neg (Neg); Cocaine Urine With Conf Neg (Neg); Opiates Urine With Conf Neg (Neg)
[2018-07-09 03:21] LABS: Cannabinoid Urine With Conf Neg (Neg)
[2018-07-09 04:06] LABS: Baso # (Auto) 0.1 th/mm3 (0.0-0.2); Baso % (Auto) 0.6 % (0.0-2.0); Eos % (Auto) 0.2 % (0.0-4.0); Hematocrit 33.9 % (35.0-46.0); Lymph # (Auto) 2.6 th/mm3 (1.0-4.8); Lymph % (Auto) 29.5 % (9.0-44.0); Mean Corpuscular HGB Conc 32.5 % (32.0-36.0); Mean Corpuscular Hemoglobin 26.5 pg (27.0-34.0); Mean Corpuscular Volume 81.6 fL (80.0-100.0); Mean Platelet Volume 11.4 fL (7.0-11.0); Mono # (Auto) 0.9 th/mm3 (0.0-0.9); Mono % (Auto) 10.5 % (0.0-8.0); Neut # (Auto) 5.3 th/mm3 (1.8-7.7); Neut % (Auto) 59.2 % (16.0-70.0); Platelet Count 170 th/mm3 (150-450); Red Blood Count 4.15 mil/mm3 (4.00-5.30); Red Cell Distribution Width 14.9 % (11.6-17.2); White Blood Count 8.9 th/mm3 (4.0-11.0)
[2018-07-09] MEDS ORDERED: Bisacodyl 10 MG Supp RECTAL PRN (04:34)
[2018-07-09] MEDS ORDERED: Oxytocin 30 Units/500ml Premix 30 UNITS/500 ML BAG IV.CONT PRN (04:34)
[2018-07-09] MEDS ORDERED: Zolpidem Tartrate 5 MG Tablet PO PRN (04:34)
[2018-07-09] MEDS ORDERED: Benzocaine 20% Top Spray 60 ML Can TOPICAL PRN (04:34)
[2018-07-09] MEDS ORDERED: Witch Hazel 50%/Glyderin 12.5% 40 Pad Jar RECTAL PRN (04:34)
--- NOTE | 2018-07-09 04:34 | P.OBDELI ---
Weeks Gestation: 39 Patient Started Active Labor: Yes Artificial Rupture of Membrane: Yes Anesthesia: None Episiotomy: none Vaginal Delivery: Normal, Spontaneous Presentation: Occiput anterior, Vertex Nuchal Cord: None Delayed Cord Clamping (45 sec): Yes Placenta: Spontaneous delivery, Intact, Uterus explored +, 3 vessel cord Laceration: None Estimated blood loss (mL): 150 : Female Female A Infant Delivery Date: 07/09/18 Delivery Time: 04:26 Weight: 3.7 kg score (1 min): 9 score (5 min): 9
--- NOTE | 2018-07-09 04:57 | P.OBGPN ---
ADVISORY! Pt is s/p successful . A review of the record which just arrived demonstrates that pt had a at 32wks following 28wk PPROM in 2009. There is NO mention of type of uterine incision on the ACOG and pt had a successful in 2014. In another part of the record, there is mention of a "classical" uterine incision. Pt was unable to answer where she delivered via c -section while laboring 2' to pain. She denies being told that she should not labor. At time of delivery, she advised that she delivered at [facility]. safety fire boss attempted to reach medical records which was closed at this time/day. I contacted L&D hospitalist directly who was able to find chart and confirmed that pt had a CLASSICAL INCISION WITH EXTENSION TO THE FUNDUS. Following , uterus was manually explored and was intact. In light of the findings above, pt has been advised that she should not labor in the future. Chart has been updated.
[2018-07-09] MEDS ORDERED: Measles/Mumps/Rubella Vaccine Inj 0.5 ML Vial SQ ONE (06:00)
[2018-07-09] MEDS ORDERED: Diphtheria/Tetanus/Pertussis Vaccine Inj 0.5 ML Syringe IM ONE (06:00)
[2018-07-09] MEDS: Acetaminophen 325 MG Tablet PO PRN ×2 (09:30→14:09)
[2018-07-09] MEDS: Senna/Docusate Sodium 8.6/50 MG Tablet PO SCH ×2 (09:57→16:36)
[2018-07-10] MEDS: Senna/Docusate Sodium 8.6/50 MG Tablet PO SCH ×2 (05:36→08:45)
--- NOTE | 2018-07-10 08:38 | P.PNOB ---
Subjective Interval history: 32 year old female s/p at 39 wks gestation, PPD2. AFVSS. Patient reports she is feeling well. Bleeding is decreasing and pain is well- controlled. She is breast feeding and bonding well with baby. Ambulating without difficulties. She is tolerating a diet without nausea or vomiting. She has had a bowel movement. She has passed gas. Denies chest pain, dysuria, shortness of breath, or calf pain. Objective Vital Signs/I&O: Vital Signs 07/09/18 15:58 07/09/18 15:59 07/09/18 20:00 Temperature 99.4 F 99.4 F Pulse Rate 81 81 90 Respiratory Rate 20 20 16 Blood Pressure 139/89 139/89 145/87 H 07/10/18 00:00 Temperature 98.0 F Pulse Rate 84 Respiratory Rate 16 Blood Pressure 139/96 H Result Diagrams: 07/09/18 03:45 Objective Remarks: GENERAL: Well-nourished, well-developed patient. CARDIOVASCULAR: Regular rate and rhythm without murmurs, gallops, or rubs. RESPIRATORY: Breath sounds equal bilaterally. No accessory muscle use. ABDOMEN/GI: Abdomen soft, non-tender. Fundus: Firm, non-tender at umbilicus. GENITOURINARY: Light to moderate bleeding. EXTREMITIES: No cyanosis or edema, non-tender, without signs of DVT. Medications and IVs: Active Medications Acetaminophen (Tylenol) 650 mg PO Q4H PRN PRN Reason: PAIN SCALE 1 TO 2 Last Admin: 07/09/18 14:09 Dose: 650 mg Al Hydroxide/Mg Hydroxide (Milk Of Magnesia Liq) 30 ml PO Q12H PRN PRN Reason: Mild Constipation Benzocaine (Americaine 20% Top Alpha) 1 spray TOPICAL Q4H PRN PRN Reason: For Perineum Discomfort Bisacodyl (Dulcolax Supp) 10 mg RECTAL DAILY PRN PRN Reason: SEVERE CONSITIPATION Oxytocin (Pitocin 30 Units/Ns 500 Ml Premix) 30 units in 500 mls @ 100 mls/hr IV.CONT UNSCH PRN PRN Reason: Heavy bleeding Ibuprofen (Motrin) 800 mg PO Q8H PRN PRN Reason: For Cramping Last Admin: 07/10/18 05:39 Dose: 800 mg Lactulose (Lactulose Liq) 30 ml PO DAILY PRN PRN Reason: SEVERE CONSITIPATION Naloxone HCl (Narcan Inj) 0.1 mg IV.PUSH Q2M PRN PRN Reason: for opiate reversal Ondansetron HCl (Zofran Odt) 4 mg PO Q6H PRN PRN Reason: NAUSEA OR VOMITING Senna/Docusate Sodium (Jaquelin-Colace) 1 tab PO BID [facility] Last Admin: 07/10/18 05:36 Dose: 1 tab Sennosides (Senokot) 17.2 mg PO Q12H PRN PRN Reason: Moderate Constipation Sodium Chloride (Ns Flush) 2 ml IV.FLUSH BID [facility] Last Admin: 07/09/18 21:00 Dose: 2 ml Sodium Chloride (Ns Flush) 2 ml IV.FLUSH PRN PRN PRN Reason: FLUSH AFTER USING IV ACCESS Sodium Chloride (Ns Flush) 2 ml IV.FLUSH BID [facility] Last Admin: 07/10/18 05:36 Dose: 2 ml Sodium Chloride (Ns Flush) 2 ml IV.FLUSH PRN PRN PRN Reason: FLUSH AFTER USING IV ACCESS Witch Bushra/Glycerin (Tucks Pads) 1 applicatio RECTAL QID PRN PRN Reason: HEMORRHOIDS Zolpidem Tartrate (Ambien) 5 mg PO HS PRN PRN Reason: SLEEP Assessment and Plan - Diagnosis (1) (vaginal after ) Code(s): Z98.891 - History of uterine scar from previous surgery Status: Acute - Plan 32 yo female s/p , PPD 2 - AFVSS - Continue routine care - Motrin PRN pain - Encourage OOB - Pelvic rest x 6 wks. - Contraception: control pills - Anticipate D/C today -dw Dr. Casey and Dr. Brooks
[2018-07-10 09:15] VITALS: RESP 20; TEMP 98.8
[2018-07-10] MEDS ORDERED: hydroCHLOROthiazide 25 MG Tablet PO ONE (10:00)
[2018-07-10] MEDS: Acetaminophen 325 MG Tablet PO PRN (12:09)
[2018-07-10 15:28] VITALS: BP 140/87; PULSE 94
== END 2018-07-10 17:04 | disposition home or self-care (01) ==
LOC: HOBED 02:00 → H2E 02:44 → H1EA 06:17
PROVIDERS: ADMIT Obstetrics & Gynecology; ATTEND Obstetrics & Gynecology